=== PATIENT | male | born 1995 | race Caucasian/White ===

== ENCOUNTER 2022-08-05 13:53 | Observation (INO) ==
[2022-08-05] MEDS ORDERED: SODIUM CHLORIDE 0.9% 1000ML 1,000 ML IV ONE (14:08)
[2022-08-05 14:36] LABS: Basophils # (auto) 0.03 K/uL (0-0.2); Basophils % (auto) 0.6 %; Eosinophils # (auto) 0.04 K/uL (0-0.50); Eosinophils % (auto) 0.8 %; Hematocrit (blood only) 44.5 % (40.1-51.0); Immature Granulocytes # (auto) 0.02 K/uL (0.00-0.02); Immature Granulocytes % (auto) 0.4 %; Lymphocytes # (auto) 1.67 K/uL (1.2-3.4); Lymphocytes % (auto) 32.9 %; Mean Corpuscular Hemoglobin 30.7 pg (25.0-34.0); Mean Corpuscular Volume 85.4 fL (80.0-100.0); Monocytes # (auto) 0.57 K/uL (0.24-0.82); Monocytes % (auto) 11.2 %; Neutrophils # (auto) 2.75 K/uL (1.4-6.5); Neutrophils % (auto) 54.1 %; Platelet Count 219 K/uL (130-400); RDW Coefficient of Variation 11.7 % (11.5-14.5); RDW Standard Deviation 36.1 fL (36.4-46.3); Red Blood Count 5.21 M/uL (4.63-6.08); White Blood Count 5.08 K/ul (4.8-10.8)
--- NOTE | 2022-08-05 14:46 | XRay Report ---
XR chest 1V portable CLINICAL HISTORY: Chest Pain TECHNIQUE: Single frontal radiograph of the chest was obtained. Comparison: None available at the time of this dictation. FINDINGS: No lines and tubes are seen. The cardiomediastinal silhouette is normal. The lungs are clear. No evid ence of pleural effusion or pneumothorax. IMPRESSION: No acute chest disease. ACT 112: Negative or not required by law. Electronically signed by: Baljinder Rosas M.D. 08/05/2022 2:45 PM
[2022-08-05 15:06] LABS: Troponin I High Sensitivity < 2.3 pg/ml (0-20)
[2022-08-05 15:17] LABS: Alanine Aminotransferase 15 U/L (7-52); Albumin Globulin Ratio 2.3 (0.9-2); Alkaline Phosphatase 56 U/L (34-104); Anion Gap 10 (3-11); Aspartate Aminotransferase 18 U/L (13-39); Bilirubin,Total 0.6 mg/dl (0.2-1.0); Blood Urea Nitrogen 10 mg/dl (6-23); Calcium 9.7 mg/dl (8.5-10.1); Carbon Dioxide 25 mmol/L (21-32); Chloride 103 mmol/L (98-107); Est GFR (African American) 106.4 ml/min; Est GFR (Non-African American) 91.8 ml/min; Globulin 2.2 gm/dl (2.5-4.0); Glucose 101 mg/dl (70-99(Fasting)); Lipase 27 U/L (11-82); Magnesium 2.1 mg/dl (1.7-2.4); Phosphorus 2.3 mg/dl (2.5-4.9); Potassium 3.7 mmol/L (3.5-5.1); Sodium 138 mmol/L (136-145); Total Protein 7.2 gm/dl (6.0-8.3)
[2022-08-05] MEDS ORDERED: busPIRone 5 MG TAB PO PRN (17:23)
[2022-08-05] MEDS ORDERED: LORATADINE 10 MG TAB PO PRN (17:23)
--- NOTE | 2022-08-05 17:47 | History & Physical Report ---
Date of Service August 05, 2022 Assessment & Plan (1) Syncope and collapse: Plan: Second episode of syncope in this year Has had cardiology evaluation and also Zio patch placed after the first episode and remained unremarkable Came in with another episode of syncope with loss of consciousness for about 2 minutes while at [employer] restaurant eating with the friends Loss of hearing and loss of vision immediately prior to loss of consciousness and brief episode of stiffness involving the extremities prior to the event as well Likely cardiac but will need to rule out any stroke and/or seizure disorder Will admit to telemetry unit for observation Get echo of the heart and EEG Cardiology consult Will give cautious amount of intravenous fluid (2) IVCD (intraventricular conduction defect): Plan: Has sinus rhythm with J-point elevation in V2 and V3 especially with IVCD Questions about Brugada syndrome was raised in the emergency room We will observe the patient in telemetry unit DVT prophylaxis SCDs CODE STATUS Full History of Present Illness Chief Complaint: Syncope with loss of consciousness Primary Care Provider: Ricardo Cutler DO Is a 26-year-old male without significant past medical history with a history of syncopal episode in the past with unremarkable findings apparently has had another episode of syncope with loss of consciousness this afternoon. He was in [employer] with his friend and was about to eat his meal and all of a sudden he slumped on the table with loss of consciousness for about 2 minutes. He did not have any warning symptoms but he can remember having loss of hearing and loss of vision moments before loss of consciousness. He has had profuse sweating following the events and he was noted to be stiff prior to the event. No incontinence, no tongue bite and no froth in mouth or any abnormal movements involving the extremities except brief episode of stiffness involving the extremities prior to loss of consciousness. He has been feeling some pressure behind the eyes after the episode and denies any other symptoms of palpitation, shortness of breath or chest pain. No abdominal symptoms nausea and or vomiting. No numbness and or tingling involving any of the extremities. He has had syncopal episode in around January and underwent a Zio patch as an outpatient which was unremarkable. Today his EKG shows some J-point elevation pronounced in V2 and V3 without any other significant findings and labs and or imaging studies. We will get CT of the head rule out any stroke and also EEG and will be admitted in the telemetry unit for observation. Allergies Allergy/AdvReac Type Severity Reaction Status Date / Time No Known Allergies Allergy Verified 08/05/22 16:46 Home Medications Medication Instructions Recorded Confirmed Type buspirone 5 mg tablet 5 mg PO BID PRN Anxiety 12/04/21 08/05/22 History loratadine 10 mg tablet 10 mg PO DAILY PRN Anxiety 08/05/22 08/05/22 History Past Med/Surg History Medical History (Updated 08/05/22 @ 17:41 by Jarrod Gilliam MD) Patient denies medical problems Social History (Updated 12/04/21 @ 06:21 by Nicolette Rubin MD) Smoking Status: Current every day smoker Tobacco Type: E-cigarettes / Vaping Current Living Situation: Significant Other current occupational status: employed Feels Safe at Home: Yes Review of Systems Review of Systems: All systems reviewed and are unremarkable except as mentioned below Physical Exam Physical Exam: Lying in bed comfortably Constitutional: well developed, well nourished and average body habitus; not ill appearing Eyes: PERRL, conjunctivae normal, anicteric sclerae ENMT: external ear and nose normal, oropharynx normal Neck: trachea midline, no thyromegaly Respiratory: no respiratory distress Auscultation: lungs clear to auscultation bilaterally Cardiovascular: Rate/Rhythm: regular rate and regular rhythm; not tachycardic Heart Sounds: normal S1 and normal S2; no murmur Extremities: no edema Gastrointestinal (Abdomen): Inspection/Auscultation: normal bowel sounds; abdomen not distended Percussion/Palpation: abdomen soft; abdomen nontender Musculoskeletal: No acute arthritis involving any joint Neurologic: normal touch/pain/proprioception and moves all extremities; no focal motor deficits and not confused No dizziness with movements of the neck Psychiatric: A+Ox3, euthymic affect Lymphatic: no cervical or axillary lymphadenopathy Results & Data Results & Data ([facility]) Vital Signs (Past 12 Hours) Vital Signs Temp Pulse Pulse Resp BP BP Pulse Ox 08/05/22 15:09 68 18 99 08/05/22 15:09 81 24 151/87 H 99 08/05/22 14:00 36.4 C L 78 20 129/79 100 O2 Del Method 08/05/22 15:09 Room Air 08/05/22 15:09 Room Air 08/05/22 14:00 Room Air Laboratory Results Short CBC 08/05/22 Range/Units 14:20 WBC 5.08 (4.8-10.8) K/ul Hgb 16.0 (14.0-18.0) g/dl Hct 44.5 (40.1-51.0) % Plt Count 219 (130-400) K/uL BMP 08/05/22 14:20 Sodium 138 Potassium 3.7 Chloride 103 Carbon Dioxide 25 BUN 10 Creatinine 1.11 Glucose 101 H Calcium 9.7 Liver Function 08/05/22 Range/Units 14:20 Total Bilirubin 0.6 (0.2-1.0) mg/dl AST 18 (13-39) U/L ALT 15 (7-52) U/L Alkaline Phosphatase 56 (34-104) U/L Albumin 5.0 (3.4-5.0) gm/dl Medications Administered Current Inpatient Medications Buspirone HCl (Buspirone 5 Mg Tab) 5 mg PO BID PRN PRN Reason: Anxiety Stop: 09/04/22 17:22 Loratadine (Loratadine 10 Mg Tab) 10 mg PO DAILY PRN PRN Reason: Anxiety Stop: 09/04/22 17:22 Code Status & VTE Plan VTE Prophylaxis Plan VTE Prophylaxis will be ordered: Yes
--- NOTE | 2022-08-05 18:08 | CT Scan Report ---
CT head/brain wo con CLINICAL HISTORY: R/O Stroke Technique: Contiguous axial CT images of the head were acquired from the base of the skull to the yarelis torie without intravenous contrast administration. Images were viewed in brain, subdural and bone [facility]. Automated dose lowering techniques and/or adjustment according to patient size were utilized for this exam. Comparison: None available at the time of this dictation. Findings: The ventricles, basal cisterns, and cerebral sulci are normal. There is no acute intracranial hemorrh age or evidence of acute territorial infarction. Neither mass effect, shift of the midline structures , nor abnormal extra-axial fluid collections are shown. Imaged portions of the paranasal sinuses and mastoid air cells are clear. The orbits appear normal. There are no acute fractures of the calvaria or scalp swelling. Impression: No acute intracranial hemorrhage, no evidence of acute territorial infarction or other acute intracra nial disease process. ACT 112: Negative or not required by law. Electronically signed by: Baljinder Rosas M.D. 08/05/2022 6:07 PM
[2022-08-05] MEDS ORDERED: POLYETHYLENE (MIRALAX) 17 GM PACK PO PRN (18:32)
[2022-08-05] MEDS ORDERED: ONDANSETRON INJ 2 MG/ML 2 ML VIAL IV PRN (18:32)
[2022-08-05] MEDS ORDERED: ACETAMINOPHEN 325 MG TAB PO PRN (18:32)
[2022-08-05] MEDS: POT PHOSPHATE MONOBASIC W/ SOD TAB PO SCH (19:59)
[2022-08-05] MEDS: D5NSS + 20MEQ KCL 20 MEQ/1,000 ML BAG IV SCH (20:00)
--- NOTE | 2022-08-05 20:41 | Emergency Department Note ---
Impression & Plan Syncope and collapse, IVCD (intraventricular conduction defect), History of syncope ED Provider Note NAME: CAMILLE SEO AGE: 26 SEX: M ARRIVES VIA: Walk-In INFORMANT: Patient ED PROVIDER(S): Agustin Mora MD CHIEF COMPLAINT: Syncope PLAN: Disposition: Home MEDICAL DECISION MAKING: The patient is a pleasant 26-year-old gentleman with a past medical history of syncope who presents to the emergency department via EMS for syncopal episode which occurred prior to arrival when he was eating lunch at [employer] with a friend and it was noted that the patient suddenly syncopized with his face falling into his food and was unresponsive for approximately 2 minutes. The patient reports that he denies having any preceding symptoms of nausea, abd ominal pain, room spinning, chest pain or palpitations. He acknowledges he had a prior episode of syncope for which she was seen in the emergency department in December which occurred in the setting of abdominal discomfort and sense of the need to move his bowels. He reports during that episode after he recovered he attempted to stand up and syncopized a second time. His emergency department evaluation was unremarkable and given the description of events was suspected to be related to a vasovagal episode. He did follow-up subsequently with cardiology and had a heart monitor for 2 weeks which was unremarkable though he reports not having any symptoms in the time. He has a scheduled outpatient treadmill stress test that is upcoming. He reports a family history of heart disease but does not describe any history of unexplained syncope among family members. He denies any recent fevers, chills, cough, congestion, GI or symptoms. He denies any recent medications. He denies any regular alcohol use, smoking. He reports history of using cannabis oil but has not use this in several weeks. On arrival the patient is well-appearing no distress, afebrile stable vital signs. He appears clinically dry. He has no focal neurologic deficits. EKG demonstrates sinus rhythm with sinus arrhythmia and non-specific intraventricular conduction delay. Of note, V2 morphology is somewhat different from his EKG in December where a saddleback configuration is noted in V2 with mildly elevated ST segment which given the context raises the possibility of Brugada though not definitive. WBC, H/H and platelets within normal limits. Chemistry without metabolic acidosis. Electrolytes and LFTs without significant abnormality. Lipase within normal limits. High-sensitivity troponin was undetectable. COVID-19 RNA, BRANDON test was negative. Case was reviewed with [facility] cardiology on-call as the patient does follow with [facility] cardiology. Case was reviewed with Dr. Odonnell who agrees it is reasonable to admit the patient for further monitoring and evaluation. Case was discussed with Matheus Monreal PAC with Dr. Gilliam, [facility] hospitalist, who will evaluate the patient for admission. Triage Nursing notes reviewed and agree them. Prior medical records reviewed Vital Signs: reviewed and remarkable for no significant abnormalities Differential diagnosis: Vasovagal event, dehydration, infection, hypoglycemia, electrolyte abnormalities, cardiac sources, intracerebral event, pulmonary embolism, sei zure, toxicologic, neurologic, as well as other pathologies. ER treatment provided: See below. Diagnostics interpreted by me: ECG: Normal sinus rhythm with sinus arrhythmia, nonspecific intraventricular conduction delay, 65 bpm, no ectopy, there is slight ST segment saddleback configuration of V2 with mildly elevated ST segment which is nonspecific but given the context raises the possibility of Brugada. Otherwise, no overt ST elevation or depression. QTC 422, QRS 124. Cardiac Monitoring: None Laboratory studies: See below Imaging studies: See below Consultation(s): Matheus Monreal PAC with Dr. Gilliam [facility] hospitalist, HPI: The patient is a pleasant 26-year-old gentleman with a past medical history of syncope who presents to the emergency department via EMS for syncopal episode which occurred prior to arrival when he was eating lunch at [employer] with a friend and it was noted that the patient suddenly syncopized with his face falling into his food and was unresponsive for approximately 2 minutes. The patient reports that he denies having any preceding symptoms of nausea, abdominal pain, room spinning, chest pain or palpitations. He acknowledges he had a prior episode of syncope for which she was seen in the emergency department in December which occurred in the setting of abdominal discomfort and sense of the need to move his bowels. He reports during that episode after he recovered he attempted to stand up and syncopized a second time. His emergency department evaluation was unremarkable and given the description of events was suspected to be related to a vasovagal episode. He did follow-up subsequently with cardiology and had a heart monitor for 2 weeks which was unremarkable though he reports not having any symptoms in the time. He has a scheduled outpatient treadmill stress test that is upcoming. He reports a family history of heart disease but does not describe any history of unexplained syncope among family members. He denies any recent fevers, chills, cough, congestion, GI or symptoms. He denies any recent medications. He denies any regular alcohol use, smoking. He reports history of using cannabis oil but has not use this in several weeks. ROS: See above HPI for pertinent positives & negatives. A total of 10 systems reviewed and were otherwise negative. VITALS:See Below PHYSICAL EXAMINATION: GENERAL: Awake, alert, well-appearing, in no distress HENT: Normocephalic, atraumatic. Oropharynx with dry mucous membranes and otherwise unremarkable. EYES: Normal conjunctiva. Sclera non-icteric. EOMI. No nystamgus. PEARRL. NECK: Supple. No nuchal rigidity. FROM. No JVD. RESPIRATORY: Clear to auscultation. CARDIAC: Regular rate, normal rhythm. Extremities warm and well perfused. Pulses equal. ABDOMEN: Soft, non-distended. No tenderness to palpation. No rebound or guarding. No masses. RECTAL: Deferred. MUSCULOSKELETAL: Chest examination reveals no tenderness. The back is symmetrical on inspection without obvious abnormality. There is no CVA tenderness to palpation. No joint edema. LOWER EXTREMITIES: Calves are equal size bilaterally and non-tender. No edema. No discoloration. NEURO: Normal sensorium. No sensory or motor deficits noted. 5/5 strength and SILT x 4 extremities. Cerebellar function intact including [id number], al ternating palms, viky-pt-[id number]. SKIN: No rash or jaundice noted. Agustin Mora MD Past Med/Surg History Medical History Patient denies medical problems Family History Other Heart disease Social History Smoking Status: Current every day smoker Tobacco Type: E-cigarettes / Vaping Hx Alcohol Use: No Hx Substance Use: No Preferred Language: Romansh [employer] Required: No Beliefs That Will Affect Care: None Current Living Situation: Significant Other current occupational status: employed Other Information That Helps Us Care for You: No Feels Safe at Home: Yes Assistive Devices: None Allergies Allergies Allergy/AdvReac Type Severity Reaction Status Date / Time No Known Allergies Allergy Verified 08/05/22 16:46 Home Meds Home Medications Medication Instructions Recorded Confirmed buspirone 5 mg tablet 5 mg PO BID PRN Anxiety 12/04/21 08/05/22 loratadine 10 mg tablet 10 mg PO DAILY PRN Anxiety 08/05/22 08/05/22 Results & Data (ED) Vital Signs Vital Signs - 24 hr 08/05/22 14:00 08/05/22 15:09 08/05/22 15:09 Temperature 36.4 C L Temperature Source Temporal Artery Scan Pulse Rate 78 68 Pulse Rate [Apical] 81 Pulse Rhythm Regular Pulse Rhythm [Apical] Regular Pulse Strength [Apical] Normal Respiratory Rate 20 24 18 Respiratory Effort / Characteristics Non-Labored Non-Labored Respiratory Depth Normal Normal Respiratory Pattern Regular Blood Pressure 129/79 Blood Pressure [Left Arm] 151/87 H Blood Pressure Mean 95 Blood Pressure Mean [Left Arm] 108 Blood Pressure Position [Left Arm] Lying Pulse Oximetry 100 99 99 Oxygen Delivery Method Room Air Room Air Room Air Sepsis Recent Fever Within 48 Hours No Sepsis New/Unexplained Change in Mental Status N/A Sepsis Action Taken by Nursing No Action Required Laboratory Data Attestation: I reviewed the patient's lab results. Result diagrams: 08/05/22 14:20 08/05/22 14:20 Lab Results 08/05/22 08/05/22 08/05/22 Range/Units 14:20 14:20 15:15 WBC 5.08 (4.8-10.8) K/ul RBC 5.21 (4.63-6.08) M/uL Hgb 16.0 (14.0-18.0) g/dl Hct 44.5 (40.1-51.0) % MCV 85.4 (80.0-100.0) fL MCH 30.7 (25.0-34.0) pg MCHC 36.0 (32.0-36.0) g/dL RDW Std Deviation 36.1 L (36.4-46.3) fL RDW Coeff of Terrell 11.7 (11.5-14.5) % Plt Count 219 (130-400) K/uL MPV 9.0 L (9.4-12.4) fL Immature Gran % (Auto) 0.4 % Neut % (Auto) 54.1 % Lymph % (Auto) 32.9 % [place] % (Auto) 11.2 % Eos % (Auto) 0.8 % Baso % (Auto) 0.6 % Neut # (Auto) 2.75 (1.4-6.5) K/uL Lymph # (Auto) 1.67 (1.2-3.4) K/uL [place] # (Auto) 0.57 (0.24-0.82) K/uL Eos # (Auto) 0.04 (0-0.50) K/uL Baso # (Auto) 0.03 (0-0.2) K/uL Immature Gran # (Auto) 0.02 (0.00-0.02) K/uL Sodium 138 (136-145) mmol/L Potassium 3.7 (3.5-5.1) mmol/L Chloride 103 (98-107) mmol/L Carbon Dioxide 25 (21-32) mmol/L Anion Gap 10 (3-11) BUN 10 (6-23) mg/dl Creatinine 1.11 (0.6-1.4) mg/dl Est Cr Clr Drug Dosing 96.0 ml/min Est GFR ( Amer) 106.4 ml/min Est GFR (Non-Af Amer) 91.8 ml/min BUN/Creatinine Ratio 9.0 L (10-20) Glucose 101 H (70-99(Fasting)) mg/dl Calcium 9.7 (8.5-10.1) mg/dl Phosphorus 2.3 L (2.5-4.9) mg/dl Magnesium 2.1 (1.7-2.4) mg/dl Total Bilirubin 0.6 (0.2-1.0) mg/dl AST 18 (13-39) U/L ALT 15 (7-52) U/L Alkaline Phosphatase 56 (34-104) U/L Troponin I High Sens < 2.3 (0-20) pg/ml Total Protein 7.2 (6.0-8.3) gm/dl Albumin 5.0 (3.4-5.0) gm/dl Globulin 2.2 L (2.5-4.0) gm/dl Albumin/Globulin Ratio 2.3 H (0.9-2) Lipase 27 (11-82) U/L SARS-CoV-2, RNA, NAAT NEGATIVE (NEGATIVE) Administered Medications Heparin Sodium (Porcine) (Heparin Sod 5,000 Unit/0.5 Ml Vial) 5,000 units SQ Q8 [facility] Stop: 09/04/22 21:59 Last Admin: 08/05/22 21:29 Dose: Not Given Documented By: PAT Potassium Chloride/Dextrose/Sod Cl (D5nss + 20meq Kcl) 20 meq in 1,000 mls @ 80 mls/hr IV .[id number] [facility]; Protocol Stop: 08/07/22 08:29 Last Admin: 08/05/22 20:00 Dose: 80 mls/hr Documented By: PAT Potassium Phosphate (Pot Phosphate Monobasic W/ Sod Tab) 2 tab PO QID [facility] Stop: 09/04/22 20:59 Last Admin: 08/05/22 19:59 Dose: 2 tab Documented By: PAT Discontinued Medications Sodium Chloride (Nss 1000ml) 1,000 mls @ 999 mls/hr IV .Q1H1M ONE Stop: 08/05/22 15:08 Last Infusion: 08/05/22 15:30 Dose: 0 mls/hr Documented By: Admin: 08/05/22 14:25 Dose: 999 mls/hr Documented By: OL Imaging Data Radiologist's Impression: Chest X-Ray 08/05/22 14:08 XR chest 1V portable CLINICAL HISTORY: Chest Pain TECHNIQUE: Single frontal radiograph of the chest was obtained. Comparison: None available at the time of this dictation. FINDINGS: No lines and tubes are seen. The cardiomediastinal silhouette is normal. The lungs are clear. No evidence of pleural effusion or pneumothorax. IMPRESSION: No acute chest disease. ACT 112: Negative or not required by law. Electronically signed by: Baljinder Rosas M.D. 08/05/2022 2:45 PM Discharge Plan Visit Data Chief Complaint: Vertigo Stated Complaint: HEART PROBLEM, POSSIBLE CONSSION,FALL ED Provider: Agustin Mora Discharge Problem: Syncope and collapse, IVCD (intraventricular conduction defect), History of syncope Patient Disposition: Admitted As Inpatient Discharge Instructions Interventions: ED Discharge Assessment Last Done: 08/05/22 18:11
[2022-08-05] MEDS: HEPARIN SOD 5,000 UNIT/0.5 ML VIAL SQ SCH (21:29)
[2022-08-06] MEDS: HEPARIN SOD 5,000 UNIT/0.5 ML VIAL SQ SCH ×3 (06:07→21:16)
--- NOTE | 2022-08-06 07:24 | Electrocardiogram Report ---
Test Reason : Blood Pressure : / mmHG Vent. Rate : 065 BPM Atrial Rate : 065 BPM P-R Int : 120 ms QRS Dur : 124 ms QT Int : 406 ms P-R-T Axes : 016 077 063 degrees QTc Int : 422 ms Normal sinus rhythm with sinus arrhythmia Right bundle branch block Borderline ECG When compared with ECG of 05-AUG-2022 14:08, (unconfirmed) No significant change was found Confirmed by Jt Del Rosario ([id number]) on 08/06/2022 7:23:57 AM Referred By: REFERRED SELF Confirmed By:Rey Del Rosario
[2022-08-06 07:28] LABS: Basophils # (auto) 0.04 K/uL (0-0.2); Basophils % (auto) 0.7 %; Eosinophils # (auto) 0.08 K/uL (0-0.50); Eosinophils % (auto) 1.5 %; Hematocrit (blood only) 37.8 % (40.1-51.0); Hemoglobin 13.3 g/dl (14.0-18.0); Immature Granulocytes # (auto) 0.01 K/uL (0.00-0.02); Immature Granulocytes % (auto) 0.2 %; Lymphocytes # (auto) 1.81 K/uL (1.2-3.4); Lymphocytes % (auto) 33.5 %; Mean Corpuscular Hemoglobin 30.9 pg (25.0-34.0); Mean Corpuscular Hgb Conc 35.2 g/dL (32.0-36.0); Mean Corpuscular Volume 87.9 fL (80.0-100.0); Mean Platelet Volume 9.2 fL (9.4-12.4); Monocytes # (auto) 0.52 K/uL (0.24-0.82); Monocytes % (auto) 9.6 %; Neutrophils # (auto) 2.95 K/uL (1.4-6.5); Neutrophils % (auto) 54.5 %; Platelet Count 193 K/uL (130-400); RDW Coefficient of Variation 11.7 % (11.5-14.5); RDW Standard Deviation 37.5 fL (36.4-46.3); White Blood Count 5.41 K/ul (4.8-10.8)
--- NOTE | 2022-08-06 07:40 | Electrocardiogram Report ---
Test Reason : Blood Pressure : / mmHG Vent. Rate : 062 BPM Atrial Rate : 062 BPM P-R Int : 132 ms QRS Dur : 118 ms QT Int : 408 ms P-R-T Axes : 057 049 064 degrees QTc Int : 414 ms Sinus rhythm with marked sinus arrhythmia Non-specific intra-ventricular conduction delay Borderline ECG Confirmed by Jt Del Rosario ([id number]) on 08/06/2022 7:40:12 AM Referred By: REFERRED SELF Confirmed By:Rey Del Rosario
[2022-08-06 07:57] LABS: Calcium 8.9 mg/dl (8.5-10.1); Creatinine Clr Calc Pharmacy 118.7 ml/min; Est GFR (African American) 137.1 ml/min; Est GFR (Non-African American) 118.3 ml/min; Potassium 3.9 mmol/L (3.5-5.1)
[2022-08-06] MEDS: D5NSS + 20MEQ KCL 20 MEQ/1,000 ML BAG IV SCH ×2 (08:22→20:10)
[2022-08-06] MEDS: POT PHOSPHATE MONOBASIC W/ SOD TAB PO SCH ×4 (08:22→20:02)
--- NOTE | 2022-08-06 12:06 | Electroencephalogram ---
EEG Procedure Note Date of Service August 06, 2022 Start / End Times Start Time: 1119 End Time: [address] Gilliam History 26-year-old with history of syncopal events. Home Medication List Medication Instructions Recorded Confirmed Type buspirone 5 mg tablet 5 mg PO BID PRN Anxiety 12/04/21 08/05/22 History loratadine 10 mg tablet 10 mg PO DAILY PRN Anxiety 08/05/22 08/05/22 History Inpatient Medication List Heparin Sodium (Porcine) (Heparin Sod 5,000 Unit/0.5 Ml Vial) 5,000 units SQ Q8 [facility] Stop: 09/04/22 21:59 Last Admin: 08/06/22 06:07 Dose: Not Given Documented By: Admin: 08/05/22 21:29 Dose: Not Given Documented By: PAT Potassium Chloride/Dextrose/Sod Cl (D5nss + 20meq Kcl) 20 meq in 1,000 mls @ 80 mls/hr IV .[id number] [facility]; Protocol Stop: 08/07/22 08:29 Last Admin: 08/06/22 08:22 Dose: 80 mls/hr Documented By: Infusion: 08/06/22 08:22 Dose: 80 mls/hr Documented By: Admin: 08/05/22 20:00 Dose: 80 mls/hr Documented By: PAT Potassium Phosphate (Pot Phosphate Monobasic W/ Sod Tab) 2 tab PO QID [facility] Stop: 09/04/22 20:59 Last Admin: 08/06/22 08:22 Dose: 2 tab Documented By: Admin: 08/05/22 19:59 Dose: 2 tab Documented By: PAT Discontinued Medications Sodium Chloride (Nss 1000ml) 1,000 mls @ 999 mls/hr IV .Q1H1M ONE Stop: 08/05/22 15:08 Last Infusion: 08/05/22 15:30 Dose: 0 mls/hr Documented By: Admin: 08/05/22 14:25 Dose: 999 mls/hr Documented By: ALICIA Description This is a 21 electrode EEG with a single channel dedicated to limited EKG. The electrodes were placed in accordance with the International 10-20 system. Interpretation The predominant background activity consists of a very well modulated 10 Hz activity, of up to 30 mV in amplitude,seen symmetrically distributed over the posterior head regions bilaterally, spreading anteriorly. This activity attenuates nicely with eye-opening and other alerting procedures. Photic stimulation was performed and elicited no change in the background activity and no abnormal responses were seen. Hyperventilation was not performed. There was a obvious electrode artifact occurring as isolated sharp transients at a fixed interval. The [employer] mill lab technician stopped the IV pump and these artifact changes resolved. They returned when he turned the IV pump back on A minimal amount of muscle and movement artifact activity contaminated the recording and did not hinder interpretation to any significant degree. Throughout the waking portion of the recording, no focal abnormalities, abnormal slow activity, or potentially epileptogenic discharges are seen. The patient entered the drowsy state with no further activation. In summary, this EEG was normal during wakefulness and drowsiness. No focal abnormalities, potentially epileptogenic discharges, or abnormal slow activity was seen. Clinical Correlation The abscence of potentially epileptogenic activity does not exclude a seizure disorder, since interictally, EEGs can be normal. Clinical correlation is required. [facility] EEG Procedure Codes Indication for Procedure (1) History of syncope: Neurology Neurology: 21929 EEG include record awake & drowsy
--- NOTE | 2022-08-06 12:39 | Hospitalist Progress Note ---
Date of Service August 06, 2022 Assessment & Plan (1) Syncope and collapse: Plan: Second episode of syncope in this year Has had cardiology evaluation and also Zio patch placed after the first episode and remained unremarkable Came in with another episode of syncope with loss of consciousness for about 2 minutes while at [employer] eating with the friends Loss of hearing and loss of vision immediately prior to loss of consciousness and brief episode of stiffness involving the extremities prior to the event as well Likely cardiac but will need to rule out any stroke and/or seizure disorder Will admit to telemetry unit for observation Clinically much better without any symptoms reported Appreciate cardiology input and recommendation EEG has been negative for any seizure activity and the neurologist recommended MRI Echo of the heart showed normal LV size, normal LV wall thickness and motion, EF 60 to 65%, no valvular disease, right ventricle is normal in size and function and global Doppler findings do not suggest pulmonary hypertension (2) IVCD (intraventricular conduction defect): Plan: Has sinus rhythm with J-point elevation in V2 and V3 especially with IVCD Questions about Brugada syndrome was raised in the emergency room We will observe the patient in telemetry unit EKG and this morning remain unremarkable Echo as above Likely to be placed on ICD if agreeable and qualifies DVT prophylaxis SCDs CODE STATUS Full Admission and Anticipated Discharge Date Admission Date: August 05, 2022 Subjective 08/06/2022 The patient was seen and examined in telemetry unit He did not have any more episode of palpitation and/or syncope He denies any symptoms this morning and wants to go home Review of Systems Review of Systems: All systems reviewed and are unremarkable except as noted below Cardiovascular: Additional Comments: No palpitation, no chest pain and/or shortness of breath Physical Exam Physical Exam: Lying in bed comfortably Constitutional: well developed, well nourished and average body habitus; not ill appearing Eyes: PERRL, conjunctivae normal, anicteric sclerae ENMT: external ear and nose normal, oropharynx normal Neck: trachea midline, no thyromegaly Respiratory: no respiratory distress Auscultation: + lungs not clear to auscultation Cardiovascular: Rate/Rhythm: regular rate and regular rhythm; not tachycardic Heart Sounds: normal S1 and normal S2; no murmur Extremities: no edema Gastrointestinal (Abdomen): Inspection/Auscultation: normal bowel sounds; abdomen not distended Percussion/Palpation: abdomen soft; abdomen nontender Musculoskeletal: No acute arthritis in any joint Neurologic: normal touch/pain/proprioception, CN's II-XI intact bilaterally and moves all extremities; no focal motor deficits Psychiatric: A+Ox3, euthymic affect Lymphatic: no cervical or axillary lymphadenopathy Results & Data Results & Data ([facility]) Vital Signs (Past 12 Hours) Vital Signs Temp Pulse Pulse Resp BP Pulse Ox O2 Del Method 08/06/22 12:01 36.6 C 62 17 127/62 98 Room Air 08/06/22 09:30 59 L 08/06/22 07:58 36.6 C 56 L 17 122/65 99 Room Air 08/06/22 04:00 36.6 C 72 17 143/82 H 98 Room Air Laboratory Results Short CBC 08/05/22 08/06/22 Range/Units 14:20 07:15 WBC 5.08 5.41 (4.8-10.8) K/ul Hgb 16.0 13.3 L (14.0-18.0) g/dl Hct 44.5 37.8 L (40.1-51.0) % Plt Count 219 193 (130-400) K/uL BMP 08/05/22 08/06/22 14:20 07:15 Sodium 138 138 Potassium 3.7 3.9 Chloride 103 107 Carbon Dioxide 25 28 BUN 10 9 Creatinine 1.11 0.90 Glucose 101 H 96 Calcium 9.7 8.9 Liver Function 08/05/22 Range/Units 14:20 Total Bilirubin 0.6 (0.2-1.0) mg/dl AST 18 (13-39) U/L ALT 15 (7-52) U/L Alkaline Phosphatase 56 (34-104) U/L Albumin 5.0 (3.4-5.0) gm/dl Medications Administered Current Inpatient Medications Acetaminophen (Acetaminophen 325 Mg Tab) 650 mg PO Q4H PRN PRN Reason: Pain or Fever Stop: 09/04/22 18:31 Buspirone HCl (Buspirone 5 Mg Tab) 5 mg PO BID PRN PRN Reason: Anxiety Stop: 09/04/22 17:22 Heparin Sodium (Porcine) (Heparin Sod 5,000 Unit/0.5 Ml Vial) 5,000 units SQ Q8 BREANNA Stop: 10/04/22 21:59 Last Admin: 08/06/22 06:07 Dose: Not Given Potassium Chloride/Dextrose/Sod Cl (D5nss + 20meq Kcl) 20 meq in 1,000 mls @ 80 mls/hr IV .[id number] [facility]; Protocol Stop: 08/07/22 08:29 Last Admin: 08/06/22 08:22 Dose: 80 mls/hr Loratadine (Loratadine 10 Mg Tab) 10 mg PO DAILY PRN PRN Reason: Allergic Symptoms Stop: 09/04/22 17:22 Ondansetron HCl (Ondansetron Inj 2 Mg/Ml 2 Ml Vial) 4 mg IV Q6H PRN PRN Reason: Nausea Stop: 09/04/22 18:31 Polyethylene Glycol (Polyethylene (Miralax) 17 Gm Pack) 17 gm PO DAILY PRN PRN Reason: Constipation Stop: 09/04/22 18:31 Potassium Phosphate (Pot Phosphate Monobasic W/ Sod Tab) 2 tab PO QID [facility] Stop: 09/04/22 20:59 Last Admin: 08/06/22 08:22 Dose: 2 tab
--- NOTE | 2022-08-06 13:51 | Cardiology Consultation ---
Date of Consultation August 06, 2022 Assessment & Plan (1) Syncope and collapse: Plan Patient is a 26-year-old male who presents with recurrent syncopal event now approximately 8 months since last episode. No occult cause at this time. EKGs with incomplete right bundle branch block. Question raised concerned in ER regarding Brugada syndrome no evidence of type I Brugada and not typical presentation. Echocardiogram normal. No cardiac enzyme elevation or arrhythmias on telemetry Recommendations: Complete neurologic evaluation as begun. Will refer for subcutaneous loop recorder in a.m. History of Present Illness Reason for Consultation: Syncope Requesting Physician: Dr. Gilliam Attending Physician: Jarrod Gilliam MD History of Present Illness Patient is a 26-year-old male without prior history of cardiac disease but past hospitalization for syncope in December 2021. Cardiac evaluation since that time is included echocardiograms Zio patch event monitor and stress treadmill without abnormality. Initial presentation suspicious for vasovagal event but with mildly abnormal EKG present. Patient represents yesterday noting while sitting at a table preparing to eat lunch at a restaurant suddenly having graying of vision and loss of hearing followed by a syncopal event. Patient aroused after 1 to 2 minutes with episode of diaphoresis. No chest pains, tachypalpitations syncope or near syncope prior. No fevers chills or unexplained infections. No bleeding difficulties historically. Physically active without limitation Very rare alcohol user. Does vape daily Allergies Allergy/AdvReac Type Severity Reaction Status Date / Time No Known Allergies Allergy Verified 08/05/22 16:46 Home Medications Medication Instructions Recorded Confirmed Type buspirone 5 mg tablet 5 mg PO BID PRN Anxiety 12/04/21 08/05/22 History loratadine 10 mg tablet 10 mg PO DAILY PRN Anxiety 08/05/22 08/05/22 History Patient History Medical History Patient denies medical problems Family History Other Heart disease Social History Smoking Status: Current every day smoker Tobacco Type: E-cigarettes / Vaping Hx Alcohol Use: No Hx Substance Use: No Preferred Language: [place] Sound Art Instructor Required: No Beliefs That Will Affect Care: None Current Living Situation: Significant Other current occupational status: employed Other Information That Helps Us Care for You: No Feels Safe at Home: Yes Assistive Devices: None Review of Systems Review of Systems: All systems reviewed & are unremarkable except as noted in HPI & below Physical Exam Constitutional: WD/WN, vitals as above Eyes: PERRL, conjunctivae normal, anicteric sclerae ENMT: external ear and nose normal, oropharynx normal Neck: trachea midline, no thyromegaly Respiratory: normal respiratory effort, lungs clear to auscultation Cardiovascular: Rate/Rhythm: regular rate and regular rhythm Heart Sounds: normal S1 and normal S2; no gallop and no murmur Palpation: normal PMI Vessels: normal carotid upstroke and radial pulses present; no JVD and no carotid bruit Extremities: no edema Gastrointestinal (Abdomen): normal bowel sounds, soft, nontender, no hepatosplenomegaly Musculoskeletal: no cyanosis or clubbing, extremities motor strength 5/5 Skin: no rashes, warm and dry Neurologic: PERRL, EOMI, accommodation nl, no face palsy, no dysarthria Psychiatric: A+Ox3, euthymic affect Results & Data ([facility]) Vital Signs (Past 12 Hours) Vital Signs Temp Pulse Pulse Resp BP Pulse Ox O2 Del Method 08/06/22 12:01 36.6 C 62 17 127/62 98 Room Air 08/06/22 09:30 59 L 08/06/22 07:58 36.6 C 56 L 17 122/65 99 Room Air 08/06/22 04:00 36.6 C 72 17 143/82 H 98 Room Air Laboratory Results Laboratory Results - last 24 hr 08/05/22 08/05/22 08/05/22 14:20 14:20 15:15 WBC 5.08 RBC 5.21 Hgb 16.0 Hct 44.5 MCV 85.4 MCH 30.7 MCHC 36.0 RDW Std Deviation 36.1 L RDW Coeff of Terrell 11.7 Plt Count 219 MPV 9.0 L Immature Gran % (Auto) 0.4 Neut % (Auto) 54.1 Lymph % (Auto) 32.9 [place] % (Auto) 11.2 Eos % (Auto) 0.8 Baso % (Auto) 0.6 Neut # (Auto) 2.75 Lymph # (Auto) 1.67 [place] # (Auto) 0.57 Eos # (Auto) 0.04 Baso # (Auto) 0.03 Immature Gran # (Auto) 0.02 Sodium 138 Potassium 3.7 Chloride 103 Carbon Dioxide 25 Anion Gap 10 BUN 10 Creatinine 1.11 Est Cr Clr Drug Dosing 96.0 Est GFR ( Amer) 106.4 Est GFR (Non-Af Amer) 91.8 BUN/Creatinine Ratio 9.0 L Glucose 101 H Calcium 9.7 Phosphorus 2.3 L Magnesium 2.1 Total Bilirubin 0.6 AST 18 ALT 15 Alkaline Phosphatase 56 Troponin I High Sens < 2.3 Total Protein 7.2 Albumin 5.0 Globulin 2.2 L Albumin/Globulin Ratio 2.3 H Lipase 27 SARS-CoV-2, RNA, NAAT NEGATIVE 08/06/22 08/06/22 07:15 07:15 WBC 5.41 RBC 4.30 L Hgb 13.3 L Hct 37.8 L MCV 87.9 MCH 30.9 MCHC 35.2 RDW Std Deviation 37.5 RDW Coeff of Terrell 11.7 Plt Count 193 MPV 9.2 L Immature Gran % (Auto) 0.2 Neut % (Auto) 54.5 Lymph % (Auto) 33.5 [place] % (Auto) 9.6 Eos % (Auto) 1.5 Baso % (Auto) 0.7 Neut # (Auto) 2.95 Lymph # (Auto) 1.81 [place] # (Auto) 0.52 Eos # (Auto) 0.08 Baso # (Auto) 0.04 Immature Gran # (Auto) 0.01 Sodium 138 Potassium 3.9 Chloride 107 Carbon Dioxide 28 Anion Gap 3 BUN 9 Creatinine 0.90 Est Cr Clr Drug Dosing 118.7 Est GFR ( Amer) 137.1 Est GFR (Non-Af Amer) 118.3 BUN/Creatinine Ratio 10.0 Glucose 96 Calcium 8.9 Phosphorus Magnesium Total Bilirubin AST ALT Alkaline Phosphatase Troponin I High Sens Total Protein Albumin Globulin Albumin/Globulin Ratio Lipase SARS-CoV-2, RNA, NAAT Diagnostic Findings Echocardiogram with normal left her size thickness and function, no valvular disease ECG Additional Comments: Sinus rhythm with marked sinus arrhythmia rate 62 bpm Non-specific intra-ventricular conduction delay Borderline ECG
[2022-08-07] MEDS: HEPARIN SOD 5,000 UNIT/0.5 ML VIAL SQ SCH (05:24)
[2022-08-07] MEDS ORDERED: BACITRACIN OINT 0.9 GM PKT ONE (07:21)
[2022-08-07] MEDS ORDERED: LIDOCAINE 1% LOCAL 20 ML VIAL ONE (07:21)
[2022-08-07] MEDS ORDERED: ceFAZolin 330 MG/ML 1 GM VIAL ONE (07:25)
--- NOTE | 2022-08-07 07:29 | Magnetic Resonance Report ---
Brain MRI WITHOUT CONTRAST HISTORY: R/O stroke ?seizure TECHNIQUE: Multiplanar multisequence MRI of the brain was performed without the use of contrast. COMPARISON STUDY: Head CT 08/05/2022. FINDINGS: There are no areas of restricted diffusion to suggest acute infarction. The midline structu res are intact. Small retention cyst within the right maxillary sinus. The orbits are unremarkable. T he temporal lobes are symmetric. The mastoid air cells are clear. The ventricles and sulci are within normal limits for age. There is no mass, hematoma, midline shift. The major vascular flow-voids at t he skull base are well maintained. IMPRESSION: No acute intracranial abnormality. ACT 112: Negative or not required by law. Electronically signed by: Eris Dolan M.D. 08/07/2022 7:27 AM
--- NOTE | 2022-08-07 07:46 | History & Physical Bridge Note ---
Date of Service August 07, 2022 History & Physical Bridge Note I have examined the patient, reviewed the History & Physical and in the interval since the performance of the History & Physical I have noted the following changes of clinical significance: pt with recurrent syncope of unclear etiology; recommend LINQ insertion discussed the risks which include bleeding and infection. pt expressed an understanding and consents signed
--- NOTE | 2022-08-07 08:16 | Operative Report ---
Post Operative Report Pre & Post Diagnosis Syncope Operation Date: 08/07/22 07:30 <No data on this case meets the specified criteria> I identified the patient and participated in the time-out.: Yes Procedure Operation Date: 08/07/22 07:30 Actual Procedures p Implant Cardiac Event Recorder - Mora Tiwari DO Surgeon Mora Tiwari, Placing Judge none Estimated Blood Loss 3 Findings Consistent with Post-Op Diagnosis Specimens none Description of Procedure see offiical report I attest to the content of the Intraoperative Record and any orders documented therein. Any exceptions are noted below.
--- NOTE | 2022-08-07 08:22 | Cardiology Progress Note ---
Date of Service August 07, 2022 Assessment & Plan (1) Syncope and collapse: Plan Patient is a 26-year-old male who presents with recurrent syncopal event now approximately 8 months since last episode. No occult cause at this time. EKGs with incomplete right bundle branch block. Question raised concerned in ER regarding Brugada syndrome- no evidence of type I Brugada and not typical presentation. Echocardiogram normal. No cardiac enzyme elevation or arrhythmias on telemetry. Recommendations: 1. Loop monitor inserted this am- follow up with cardiology and device clinic at discharge. 2. Discussed driving restrictions- no driving for 6 months of if cause of syncope found. Case discussed with Dr. Agapito Hoang for discharge from a cardiology standpoint. Admission and Anticipated Discharge Date Admission Date: August 05, 2022 Supervising Physician Co-Signing Physician Notes I have reviewed the medical record and discussed the case with the DRY KILN FEEDER. I agree the patient can be discharged home to outpatient follow-up. Subjective Chart and telemetry reviewed. 26 year old male with history of syncope- prior episode approximately 8 months ago. Recent episode occurred while patient was sitting at a table eating lunch. He suddenly developed graying vision loss and had a syncopal event. Patient aroused after 1 to 2 minutes and was very diaphoretic. Prior evaluation included an echocardiogram, Zio patch as well as stress treadmill testing without abnormality. EKG this admission showed incomplete right bundle branch block. No evidence of type I Brugada and without typical presentation. Negative high-sensitivity troponin. No arrhythmias noted on telemetry. EKG/04/2022: Sinus rhythm with sinus arrhythmia, incomplete right bundle branch block, 62 bpm Echo 08/06/2022: LVEF 60 to 65% with no wall motion abnormalities, no valvular disease. Right ventricle normal in size and function. No pulmonary hypertension. EEG 08/06/2022: "normal during wakefulness and drowsiness. No focal abnormalities, potentially epileptogenic discharges, or abnormal slow activity was seen." Loop recorder inserted this am, 08/07/2022, by Dr. Tiwari Tele: NSR 60-70s with PACs. Upon entrance into the room- patient resting comfortably in bed. Family at beside. No further syncopal/presyncopal episodes. Eager to go home. Denies chest pain, shortness of breath or palpitations. Concerns regarding labile BPs in the mornings, BP lowers as day goes on. Review of Systems Review of Systems: All systems reviewed & are unremarkable except as noted in HPI & below Physical Exam Constitutional: WD/WN, vitals as above Eyes: PERRL, conjunctivae normal, anicteric sclerae ENMT: external ear and nose normal, oropharynx normal Neck: trachea midline, no thyromegaly Respiratory: normal respiratory effort, lungs clear to auscultation Cardiovascular: Rate/Rhythm: regular rate and regular rhythm Heart Sounds: normal S1 and normal S2; no gallop and no murmur Palpation: normal PMI Vessels: normal carotid upstroke and radial pulses present; no JVD and no carotid bruit Extremities: no edema Gastrointestinal (Abdomen): normal bowel sounds, soft, nontender, no hepatosplenomegaly Musculoskeletal: no cyanosis or clubbing, extremities motor strength 5/5 Skin: no rashes, warm and dry Neurologic: PERRL, EOMI, accommodation nl, no face palsy, no dysarthria Psychiatric: A+Ox3, euthymic affect Results & Data ([facility]) Vital Signs (Past 12 Hours) Vital Signs Temp Pulse Pulse Resp BP Pulse Ox O2 Del Method 08/07/22 07:59 79 17 151/78 H 100 Room Air 08/07/22 03:29 36.6 C 82 18 103/65 97 Room Air 08/06/22 23:00 55 L 08/06/22 23:04 36.8 C 85 18 114/66 98 Room Air Laboratory Results Intake and Output 08/06/22 08/07/22 08/07/22 22:59 06:59 14:59 Intake Total 1824 / 2933.333 120 / 2933.333 Balance 1824 / 2933.333 120 / 2933.333 Intake: IV 944 / 1933.333 D5nss + 20Meq KCl 20 meq In 1, 944 / 1933.333 000 ml @ 80 mls/hr IV .[id number] BREANNA Rx#:[id number] Oral 880 / 1000 120 / 1000 Other: # Unmeasured Voids 1 Weight 66.9 kg Weight Measurement Method Built in [facility]
[2022-08-07] MEDS: POT PHOSPHATE MONOBASIC W/ SOD TAB PO SCH (08:40)
--- NOTE | 2022-08-07 10:22 | Hospitalist Progress Note ---
Date of Service August 07, 2022 Assessment & Plan (1) Syncope and collapse: Plan: Second episode of syncope in this year Has had cardiology evaluation and also Zio patch placed after the first episode and remained unremarkable Came in with another episode of syncope with loss of consciousness for about 2 minutes while at [employer] eating with the friends Loss of hearing and loss of vision immediately prior to loss of consciousness and brief episode of stiffness involving the extremities prior to the event as well Likely cardiac but will need to rule out any stroke and/or seizure disorder Will admit to telemetry unit for observation Clinically much better without any symptoms reported Appreciate cardiology input and recommendation EEG has been negative for any seizure activity and the neurologist recommended MRI Echo of the heart showed normal LV size, normal LV wall thickness and motion, EF 60 to 65%, no valvular disease, right ventricle is normal in size and function and global Doppler findings do not suggest pulmonary hypertension Remains stable and no more dizziness and/or syncope No arrhythmias on monitor (2) IVCD (intraventricular conduction defect): Plan: Has sinus rhythm with J-point elevation in V2 and V3 especially with IVCD Questions about Brugada syndrome was raised in the emergency room We will observe the patient in telemetry unit EKG and this morning remain unremarkable Echo as above Status post loop recorder placement on 08/06/[address]ly advised not to drive for next 6 months Advised to give appointment with the board certified music therapist DVT prophylaxis SCDs CODE STATUS Full Will be discharged home this morning Admission and Anticipated Discharge Date Admission Date: August 05, 2022 Subjective 08/06/2022 The patient was seen and examined in telemetry unit He did not have any more episode of palpitation and/or syncope He denies any symptoms this morning and wants to go home 08/07/2022 The patient was seen and examined in telemetry unit He is a status post loop recorder placement today Denies any symptoms and wants to go home His MRI of the head has been negative Review of Systems Review of Systems: All system reviewed and are unremarkable except as noted below Physical Exam Physical Exam: Lying in bed comfortably Constitutional: well developed, well nourished and average body habitus; not ill appearing Eyes: PERRL, conjunctivae normal, anicteric sclerae ENMT: external ear and nose normal, oropharynx normal Neck: trachea midline, no thyromegaly Respiratory: no respiratory distress Auscultation: + lungs not clear to auscultation Cardiovascular: Rate/Rhythm: regular rate and regular rhythm; not tachycardic Heart Sounds: normal S1 and normal S2; no murmur Extremities: no edema Gastrointestinal (Abdomen): Inspection/Auscultation: normal bowel sounds; abdomen not distended Percussion/Palpation: abdomen soft; abdomen nontender Neurologic: normal touch/pain/proprioception, CN's II-XI intact bilaterally and moves all extremities; no focal motor deficits Psychiatric: A+Ox3, euthymic affect Lymphatic: no cervical or axillary lymphadenopathy Results & Data Results & Data ([facility]) Vital Signs (Past 12 Hours) Vital Signs Temp Pulse Pulse Resp BP Pulse Ox O2 Del Method 08/07/22 08:37 36.5 C 59 L 17 153/88 H 99 08/07/22 07:59 79 17 151/78 H 100 Room Air 08/07/22 03:29 36.6 C 82 18 103/65 97 Room Air 08/06/22 23:00 55 L 08/06/22 23:04 36.8 C 85 18 114/66 98 Room Air Medications Administered Current Inpatient Medications Acetaminophen (Acetaminophen 325 Mg Tab) 650 mg PO Q4H PRN PRN Reason: Pain or Fever Stop: 09/04/22 18:31 Last Admin: 08/07/22 09:07 Dose: 650 mg Buspirone HCl (Buspirone 5 Mg Tab) 5 mg PO BID PRN PRN Reason: Anxiety Stop: 09/04/22 17:22 Heparin Sodium (Porcine) (Heparin Sod 5,000 Unit/0.5 Ml Vial) 5,000 units SQ Q8 BREANNA Stop: 09/04/22 21:59 Last Admin: 08/07/22 05:24 Dose: Not Given Loratadine (Loratadine 10 Mg Tab) 10 mg PO DAILY PRN PRN Reason: Allergic Symptoms Stop: 09/04/22 17:22 Ondansetron HCl (Ondansetron Inj 2 Mg/Ml 2 Ml Vial) 4 mg IV Q6H PRN PRN Reason: Nausea Stop: 09/04/22 18:31 Polyethylene Glycol (Polyethylene (Miralax) 17 Gm Pack) 17 gm PO DAILY PRN PRN Reason: Constipation Stop: 09/04/22 18:31 Potassium Phosphate (Pot Phosphate Monobasic W/ Sod Tab) 2 tab PO QID BREANNA Stop: 09/04/22 20:59 Last Admin: 08/07/22 08:40 Dose: 2 tab
--- NOTE | 2022-08-07 17:47 | Discharge Summary ---
Date of Service August 07, 2022 Admission HPI Per Admitting Provider Is a 26-year-old male without significant past medical history with a history of syncopal episode in the past with unremarkable findings apparently has had another episode of syncope with loss of consciousness this afternoon. He was in [employer] with his friend and was about to eat his meal and all of a sudden he slumped on the table with loss of consciousness for about 2 minutes. He did not have any warning symptoms but he can remember having loss of hearing and loss of vision moments before loss of consciousness. He has had profuse sweating following the events and he was noted to be stiff prior to the event. No incontinence, no tongue bite and no froth in mouth or any abnormal movements involving the extremities except brief episode of stiffness involving the extremities prior to loss of consciousness. He has been feeling some pressure behind the eyes after the episode and denies any other symptoms of palpitation, shortness of breath or chest pain. No abdominal symptoms nausea and or vomitin g. No numbness and or tingling involving any of the extremities. He has had syncopal episode in around January and underwent a Zio patch as an outpatient which was unremarkable. Today his EKG shows some J-point elevation pronounced in V2 and V3 without any other significant findings and labs and or imaging studies. We will get CT of the head rule out any stroke and also EEG and will be admitted in the telemetry unit for observation. Admission Exam Per Admitting Provider Physical Exam: Lying in bed comfortably Constitutional: well developed, well nourished and average body habitus; not ill appearing Eyes: PERRL, conjunctivae normal, anicteric sclerae ENMT: external ear and nose normal, oropharynx normal Neck: trachea midline, no thyromegaly Respiratory: no respiratory distress Auscultation: lungs clear to auscultation bilaterally Cardiovascular: Rate/Rhythm: regular rate and regular rhythm; not tachycardic Heart Sounds: normal S1 and normal S2; no murmur Extremities: no edema Gastrointestinal (Abdomen): Inspection/Auscultation: normal bowel sounds; abdomen not distended Percussion/Palpation: abdomen soft; abdomen nontender Musculoskeletal: No acute arthritis involving any joint Neurologic: normal touch/pain/proprioception and moves all extremities; no focal motor deficits and not confused No dizziness with movements of the neck Psychiatric: A+Ox3, euthymic affect Lymphatic: no cervical or axillary lymphadenopathy Principal Diagnosis Syncope with collapse, status post insertion of loop recorder Discharge Exam Lying in bed comfortably Constitutional well developed, well nourished and average body habitus; not ill appearing Eyes PERRL, conjunctivae normal, anicteric sclerae ENMT external ear and nose normal, oropharynx normal Neck trachea midline, no thyromegaly Respiratory no respiratory distress Auscultation: + lungs not clear to auscultation Cardiovascular Rate/Rhythm: regular rate and regular rhythm; not tachycardic Heart Sounds: normal S1 and normal S2; no murmur Extremities: no edema Gastrointestinal (Abdomen) Inspection/Auscultation: normal bowel sounds; abdomen not distended Percussion/Palpation: abdomen soft; abdomen nontender Neurologic normal touch/pain/proprioception, CN's II-XI intact bilaterally and moves all extremities; no focal motor deficits Psychiatric A+Ox3, euthymic affect Lymphatic no cervical or axillary lymphadenopathy Discharge Data Allergies Allergy/AdvReac Type Severity Reaction Status Date / Time No Known Allergies Allergy Verified 08/05/22 16:46 Consultations 08/05/22 16:52 ED Decision to Admit Stat 08/05/22 17:51 Consult Cardiology Routine 08/05/22 18:32 Consult Cardiology Routine Procedures Performed Operation Date: 08/07/22 07:30 Actual Procedures p Implant Cardiac Event Recorder - Mora Tiwari DO Ordered Studies 08/05/22 17:29 CT Brain [CT head/brain wo con] Urgent 08/06/22 13:02 MRI Brain [MR brain wo con] Stat Hospital Course (1) Syncope and collapse: Second episode of syncope in this year Has had cardiology evaluation and also Zio patch placed after the first episode and remained unremarkable Came in with another episode of syncope with loss of consciousness for about 2 minutes while at [employer] eating with the friends Loss of hearing and loss of vision immediately prior to loss of consciousness and brief episode of stiffness involving the extremities prior to the event as well Likely cardiac but will need to rule out any stroke and/or seizure disorder Will admit to telemetry unit for observation Clinically much better without any symptoms reported Appreciate cardiology input and recommendation EEG has been negative for any seizure activity and the neurologist recommended MRI Echo of the heart showed normal LV size, normal LV wall thickness and motion, EF 60 to 65%, no valvular disease, right ventricle is normal in size and function and global Doppler findings do not suggest pulmonary hypertension Remains stable and no more dizziness and/or syncope No arrhythmias on monitor (2) IVCD (intraventricular conduction defect): Has sinus rhythm with J-point elevation in V2 and V3 especially with IVCD Questions about Brugada syndrome was raised in the emergency room We will observe the patient in telemetry unit EKG and this morning remain unremarkable Echo as above Status post loop recorder placement on 08/06/[address] advised not to drive for next 6 months Advised to give appointment with the biology research assistant DVT prophylaxis SCDs CODE STATUS Full Will be discharged home this morning Total Time Total Time Spent Total Time Spent (In Minutes): 35 minutes Discharge Plan Discharge Items Patient Disposition: Home - Self-Care Reason For Visit: SYNCOPE,ABNORMAL EKG Discharge Diagnosis: Syncope with collapse, status post insertion of loop recorder Condition on Discharge: Good Activity: Per Instructions section Non-emergency contact: Primary Care Provider Call non-emergency contact if: you have any medication questions and your symptoms worsen Follow-up/Referrals: Sarah Grewal [Other] (Date & Time 08/13/2022 10:40 AM Provider [facility] Ricardo Cutler DO [Primary Care Provider] - (Date & Time 08/13/2022 3:30 PM Provider Ricardo Cutler DO Department Cardiology, [facility] ) Diet: Regular Addtl Attending Provider Instructions: Please take it easy for the next few days Please do not drive for the next 6 months You can try Tylenol 1 g p.o. 3 times daily for pain if needed. Keep appointments with your PCP and biology research assistant Pending Studies at Discharge: No Stand-Alone Forms: My [facility] [employer], Smoking Cessation Medications and DC Order Prescriptions: Continued buspirone 5 mg tablet 5 mg PO BID PRN (Reason: Anxiety) loratadine 10 mg Tablet 10 mg PO DAILY PRN (Reason: Anxiety) Discharge Orders: Discharge Order (Routine); Ordered 08/07/22 Ordered By: Jarrod Gilliam Admission Data Admit Date/Time: 08/05/22 17:06 Attending Provider: Jarrod Gilliam Admit Provider: Jarrod Gilliam Primary Care Provider: Ricardo Cutler Other Providers: Demetrius Odonnell ; Jarrod Gilliam Other Interventions: Discharge Summary Assessment (RN) Last Done: 08/07/22 10:54
--- NOTE | 2022-08-19 13:51 | Operative Report (OR) ---
DATE OF PROCEDURE: 08/07/2022. PREOPERATIVE DIAGNOSIS: Syncope. POSTOPERATIVE DIAGNOSIS: Syncope. PROCEDURE: LINQ insertion. SURGEON: Mora Tiwari DO. UNIT SECY: None. ANESTHESIA: 12 mL of 1% local lidocaine anesthesia. BLOOD LOSS: Less than 1 mL URINE OUTPUT: Not applicable. SPECIMENS: None. FINDINGS: See below. DRAINS: None. INDICATIONS: This is a 26-year-old gentleman who had COVID back in November 2021 and then had a sync opal episode in December 2021, which was thought to be more orthostatic hypotensive related, but then he was readmitted just recently to [facility] on August 05 with a syncopal episod e and was recommended LINQ prior to discharge. CONSENT: Consent was obtained prior to the patient going into the procedure room. The patient was i nformed of the risks, benefits, and alternatives to the procedure. Risks include, but not limited to bleeding and infection. The patient understood these risks and agreed to the procedure as planned. Informed consent was obtained. DESCRIPTION OF PROCEDURE: The patient was brought into the procedure room and prepped and draped ove r the left sternal border in normal surgical standard fashion. He received prophylactic antibiotics prior to incision. A mL of 1% lidocaine were given in the fourth intercostal space to the left of the sternal border. Then, using the LINQ insertion set, the LINQ was inserted and then the incis ion was closed with 4-0 Vicryl interrupted stitch and then followed by a running stitch and Dermabond was placed. EQUIPMENT: [employer]pto LINQ II LNQ22, serial number [id number]. PARAMETERS: Tachy is 200 beats per minute for 16 beats, corbin is 40 beats per minute for 4 beats and pause is 3 seconds, R waves were measured at 0.85 millivolts. IMPRESSION: Successful LINQ insertion secondary to recurrent syncope. PLAN: He can be discharged home and he has a wound check next week in our office. Job ID: [id number]
== END 2022-08-07 11:15 | disposition home or self-care (01) ==
LOC: ED 13:53 → 2E 13:53